=== PATIENT | female | born 1970 | race Caucasian/White ===

== ENCOUNTER 2016-09-15 06:30 | Day surgery (SDC) | payer OTHER ==
[2016-09-15] MEDS ORDERED: Sodium Chloride 0.9% 1,000 ML IV SCH (07:00)
[2016-09-15] MEDS ORDERED: fentaNYL 100 MCG/2 ML SDV ONE (07:36)
[2016-09-15] MEDS ORDERED: Propofol 200 MG/20 ML SDV ONE ×2 (07:36→08:05)
[2016-09-15] MEDS ORDERED: Midazolam 1 MG/ML 2 ML SDV ONE (07:37)
[2016-09-15 09:07] VITALS: BP 129/86
--- NOTE | 2016-09-18 08:02 | OR ---
DATE OF PROCEDURE: 09/15/2016 PROCEDURE: Colonoscopy. FINDINGS: 1. Ascending colon polyp, 5 mm, completely removed using cold biopsy forceps. 2. Sigmoid colon polyp, approximately 5-8 mm, completely removed using hot snare. COMPLICATIONS: None. CLINICAL DATA MANAGEMENT MANAGER: None. ANESTHESIA: MAC. PREOPERATIVE DIAGNOSIS: Family history of colorectal cancer. POSTOPERATIVE DIAGNOSIS: Family history of colorectal cancer. INDICATIONS: Risks, benefits, alternatives, and limitations, including, but not limited to infection, bleeding, and perforation were explained to the patient. We also discussed false- positives and false-negatives associated with colonoscopy. PROCEDURE IN DETAIL: The patient was placed in left lateral decubitus position. Digital rectal exam was performed without abnormality. The scope was introduced and advanced atraumatically to the ileocecal valve. The scope was brought back to the ascending, transverse, descending colon, and retroflexed. In the ascending colon, a small polyp was identified and completely removed using cold biopsy forceps. In the sigmoid colon, a large polyp was identified, first biopsied and then completely removed using a hot snare. No abnormalities on retroflexion. The patient tolerated the procedure well. Kenn Bhagat MD /[id number]
== END 2016-09-15 09:20 ==
LOC: JP.SDS 06:30
PROVIDERS: ATTEND Surgery
DX: D12.2 Benign neoplasm of ascending colon (principal); D12.5 Benign neoplasm of sigmoid colon; I10 Essential (primary) hypertension; E66.9 Obesity, unspecified; Z88.6 Allergy status to analgesic agent; Z88.8 Allergy status to other drugs, medicaments and biological substances
CPT/HCPCS: 45380; 45385; 88305; J2250; J2704; J3010; J7040

== ENCOUNTER 2019-09-29 06:34 | Day surgery (SDC) | payer OTHER ==
[2019-09-29] MEDS ORDERED: Sodium Chloride 0.9% 1,000 ML IV SCH (07:00)
[2019-09-29] MEDS ORDERED: fentaNYL 100 MCG/2 ML SDV ONE (07:18)
[2019-09-29] MEDS ORDERED: Midazolam 1 MG/ML 2 ML SDV ONE (07:18)
[2019-09-29] MEDS ORDERED: Propofol 200 MG/20 ML SDV ONE ×2 (07:18→07:57)
[2019-09-29 09:18] VITALS: BP 118/79; PULSE 88
--- NOTE | 2019-09-29 13:57 | OR ---
DATE OF PROCEDURE: 09/29/2019 SURGEON: Kenn Bhagat MD PROCEDURE: Colonoscopy. FINDINGS: 1. Descending colon polyp, approximately 5 mm, completely removed using hot snare wire device. 2. Transverse colon polyp, approximately 8 mm, completely removed using hot snare wire biopsy device. COMPLICATIONS: None. EXCHANGE CONSULTANT: None. PREOPERATIVE DIAGNOSIS: Family history of colorectal cancer. POSTOPERATIVE DIAGNOSIS: Family history of colorectal cancer. RISKS: Risks, benefits, alternatives, and limitations including, but not limited to infection, bleeding, and perforation were explained to the patient, who wished to proceed. PROCEDURE IN DETAIL: The patient was placed in left lateral decubitus position. Digital rectal exam was performed without any abnormality. Scope was introduced and advanced atraumatically to the ileocecal valve. A photo was taken. Scope was brought back through the ascending, transverse, descending colon, and retroflexed. The aforementioned polyps were identified and completely removed using snare. No abnormal bleeding was noted. No abnormalities on retroflexion. No diverticulosis, diverticulitis, or evidence of colitis. The patient tolerated the procedure well. Kenn Bhagat MD /[id number]
== END 2019-09-29 09:17 | disposition home or self-care (01) ==
LOC: JP.SDS 06:34
PROVIDERS: ATTEND Surgery
DX: Z12.11 Encounter for screening for malignant neoplasm of colon (principal); D12.3 Benign neoplasm of transverse colon; D12.4 Benign neoplasm of descending colon; I10 Essential (primary) hypertension; Z80.0 Family history of malignant neoplasm of digestive organs; Z88.5 Allergy status to narcotic agent
CPT/HCPCS: 45385; J2250; J2704; J3010; J7030; 88305

== ENCOUNTER 2020-08-10 17:59 | Emergency (ER) | payer OTHER ==
[2020-08-10 19:08] VITALS: BP 192/116; PULSE 109
[2020-08-10] MEDS ORDERED: LORazepam 1 MG Tab PO ONE (19:57)
--- NOTE | 2020-08-10 20:00 | EDM.PDOC ---
ED HPI GENERAL MEDICAL PROBLEM - General Chief Complaint: General Stated Complaint: FELL,HIT HEAD Time Seen by Provider: 08/10/20 19:47 Source of Information: Reports: Patient, RN Notes Reviewed History Limitations: Reports: No Limitations - History of Present Illness INITIAL COMMENTS - FREE TEXT/NARRATIVE: 49-year-old female presents emergency department today following a head injury yesterday she slipped and fell on the ice hit the back of her head, she does complain of a headache she is quite anxious about this does have a fairly large hematoma on the back of her scalp, no nausea vomiting no loss of consciousness no syncopal events Head Pain Score (Numeric/FACES): 1 - Related Data Allergies Allergy/AdvReac Type Severity Reaction Status Date / Time acetaminophen [From Percocet] Allergy Cannot Verified 08/10/20 19:03 Remember oxycodone [From Percocet] Allergy Cannot Verified 08/10/20 19:03 Remember Home Meds: Home Meds lisinopriL [Prinivil] 20 mg PO DAILY 09/12/16 [History] Cetirizine HCl [Zyrtec] 10 mg PO DAILY 08/10/20 [History] Omeprazole 20 mg PO DAILY 08/10/20 [History] Past Medical History HEENT History: Reports: Allergic Rhinitis, Impaired Vision, Sinusitis Cardiovascular History: Reports: Hypertension, Other (See Below) Other Cardiovascular History: palpatation Gastrointestinal History: Reports: Colon Polyp, GERD 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: Reports: Dysfunctional Uterine Bleeding, Polycystic Ovaries, Musculoskeletal History: Reports: Arthritis, Other (See Below) Other Musculoskeletal History: septic arthritis, chronic L knee pain Neurological History: Reports: Concussion Psychiatric History: Reports: Anxiety Endocrine/Metabolic History: Reports: Obesity/BMI 30+ Hematologic History: Reports: Anemia - Infectious Disease History Infectious Disease History: Reports: Chicken Pox - Past Surgical History HEENT Surgical History: Reports: Tonsillectomy Cardiovascular Surgical History: Reports: None GI Surgical History: Reports: Colonoscopy, Polypectomy Female Surgical History: Reports: Hysterectomy, Salpingo-Oophorectomy Endocrine Surgical History: Reports: None Musculoskeletal Surgical History: Reports: Knee Replacement Social & Family History - Tobacco Use Tobacco Use Status *Q: Current Every Day Tobacco User Years of Tobacco use: 30 Packs/Tins Daily: 1 - Caffeine Use Caffeine Use: Reports: Coffee - Alcohol Use Days Per Week of Alcohol Use: 2 Number of Drinks Per Day: 3 Total Drinks Per Week: 6 - Recreational Drug Use Recreational Drug Use: No ED ROS GENERAL - Review of Systems Review Of Systems: See Below Constitutional: Reports: No Symptoms Respiratory: Reports: No Symptoms Cardiovascular: Reports: No Symptoms GI/Abdominal: Reports: No Symptoms Neurological: Reports: Headache ED EXAM, GENERAL - Physical Exam Exam: See Below Free Text/Narrative:: Cranial nerves II test with pupillary light reflex 4 mm to 2 mm bilaterally, CN III test pupillary constriction, lid elevation and eye abduction bilaterally, CN IV downward movement of eyes bilaterally, CN V good jaw movement, CN lateral deviation of the eyes bilaterally to finger movement, CN VII symmetrical smile shows teeth without difficulty, CN VIII pass finger rub to ears bilaterally, CN IX adequate voice and tone, CN X adequate voice and tone no difficulty swallowing, CN XI can shrug shoulders without difficulty, CN XII can stick tongue out without difficulty, cranial nerves II to XII intact as tested, power is 5 out 5 in upper and lower extremities, can do finger to nose without difficulty, no dysdiadochokinesis, no difficulty with rapid alternating movements can do [id number] without difficulty, Romberg is negative, has adequate gait , can toe walk and heel walk no cerebellar dysfunction. Can perform heel-to-toe walk but is unsteady, no focal neurologic deficit, examination of the scalp there is a large fluctuant area consistent with a hematoma over the occipital region on the scalp Exam Limited By: No Limitations General Appearance: Alert, WD/WN, No Apparent Distress Respiratory/Chest: No Respiratory Distress Course - Vital Signs Last Recorded V/S: Last Vital Signs Temp 97.7 F 08/10/20 19:06 Pulse 109 H 08/10/20 19:07 Resp 16 08/10/20 19:06 BP 192/116 H 08/10/20 19:07 Pulse Ox 97 08/10/20 19:06 - Orders/Labs/Meds Meds: Medications Discontinued Medications Generic Name Dose Route Start Last Admin Trade Name Freq PRN Reason Stop Dose Admin Lorazepam 1 mg 08/10/20 19:57 Ativan PO 08/10/20 19:58 ONETIME ONE Departure - Departure Time of Disposition: 20:43 Disposition: Home, Self-Care 01 Condition: Fair Clinical Impression: Head injury Qualifiers: Encounter type: initial encounter Qualified Code(s): S09.90XA - Unspecified injury of head, initial encounter - Discharge Information Instructions: Head Injury, Adult Referrals: Yaniv Malin MD [Primary Care Provider] - Forms: ED Department Discharge Additional Instructions: Continue with your regular medications, please followup with your primary care provider in 3-5 days if not better, please call return to the emergency department with worsening of symptoms. Sepsis Event Note (ED) - Evaluation Sepsis Screening Result: No Definite Risk - Focused Exam Vital Signs: Vital Signs Temp Pulse Resp BP Pulse Ox 08/10/20 19:07 109 H 192/116 H 08/10/20 19:06 97.7 F 110 H 16 204/108 H 97 08/10/20 18:49 97.7 F 110 H 16 204/108 H 97 - Assessment/Plan Plan: Assessment Acuity = acute Site and laterality = head injury concern for risk of concussion Etiology = secondary to fall on ice Manifestations = headache Location of injury = Home Lab values = CT scan of the head shows no acute intracranial process Plan We did review CT scan results with her as well as concern for concussion related injury follow-up with her primary care in the next 3 to 5 days if not better This note was dictated using [employer] voice recognition software please call with any questions on syntax or grammar.
--- NOTE | 2020-08-10 20:28 | CRLCT ---
Indication: Head injury Technique: Volumetric multidetector CT images of the head were obtained without the administration of low osmolar intravenous contrast. Comparison: None available Findings: There is no intra-axial or extra-axial fluid collection. There is no mass effect or midline shift. The ventricles and sulci are normal in size and position for age. The brain parenchyma is grossly preserved in attenuation and valverde-white differentiation. The orbits and their contents are grossly within normal limits. The bony calvarium is grossly intact. There is demonstration of a occipital subgaleal soft tissue hematoma. The paranasal sinuses are clear. The mastoid air cells are well aerated. Impression: Demonstration of occipital subgaleal soft tissue hematoma without evidence of acute intracranial abnormality. Please note that all CT scans at this facility use dose modulation, iterative reconstruction, and/or weight-based dosing when appropriate to reduce radiation dose to as low as reasonably achievable. Dictated by Derick Brunson MD @ Aug 10 2020 8:23PM Signed by Dr. Derick Brunson @ Aug 10 2020 8:26PM
== END 2020-08-10 20:57 | disposition home or self-care (01) ==
LOC: JP.ED 17:59
DX: S09.90XA Unspecified injury of head, initial encounter (principal); I10 Essential (primary) hypertension; K21.9 Gastro-esophageal reflux disease without esophagitis; E66.9 Obesity, unspecified; Z68.31 Body mass index [BMI] 31.0-31.9, adult; Z88.5 Allergy status to narcotic agent; Z88.6 Allergy status to analgesic agent; Z79.899 Other long term (current) drug therapy; Z72.0 Tobacco use; Z79.82 Long term (current) use of aspirin; W01.10XA Fall on same level from slipping, tripping and stumbling with subsequent striking against unspecified object, initial encounter
CPT/HCPCS: 70450; 99283; 99283-25

== ENCOUNTER 2024-11-10 17:00 | Emergency (ER) | payer BC, OTHER ==
[2024-11-10] MEDS ORDERED: Sodium Chloride 0.9% 10 ML Syringe FLUSH PRN (17:08)
[2024-11-10 17:16] LABS: BASOPHILS ABSOLUTE AUTO 0.05 K/uL (0.00-0.10); BASOPHILS PERCENT AUTO 0.5 % (0.1-1.3); EOSINOPHILS ABSOLUTE AUTO 0.11 K/uL (0.00-0.40); EOSINOPHILS PERCENT AUTO 1.1 % (0.0-5.4); HEMATOCRIT 42.2 % (34.3-46.0); HEMOGLOBIN 14.8 g/dL (11.2-15.5); IMMATURE GRAN ABSOLUTE AUTO 0.03 K/uL (0.00-0.23); IMMATURE GRAN PERCENT AUTO 0.3 % (0.0-0.7); LYMPHOCYTES ABSOLUTE AUTO 2.07 K/uL (0.8-3.3); LYMPHOCYTES PERCENT AUTO 21.2 % (11.4-47.7); MEAN CORPUSCULAR HGB CONC 35.1 g/dL (31.6-35.5); MEAN CORPUSCULAR VOLUME 99.8 fL (81.4-99.0); MONOCYTES ABSOLUTE AUTO 0.77 K/uL (0.20-0.90); MONOCYTES PERCENT AUTO 7.9 % (3.3-12.6); NEUTROPHILS ABSOLUTE AUTO 6.74 K/uL (1.0-7.6); PLATELET COUNT,PLT 230 K/uL (130-375); RED BLOOD CELL COUNT 4.23 M/uL (3.77-5.24); WHITE BLOOD CELL COUNT,WBC 9.8 K/uL (3.2-11.0)
[2024-11-10 17:39] LABS: PTT,PARTIAL THROMBOPLSTIN TIME 28.1 sec (21.8-27.3)
[2024-11-10 17:43] LABS: ALANINE AMINOTRANSFERASE,ALT 31 U/L (12-78); ALKALINE PHOSPHATASE 74 U/L (46-116); ANION GAP 13.9 mmol/L (5.0-14.0); ASPARTATE AMNIOTRANSFERASE,AST 20 U/L (15-37); BILIRUBIN TOTAL 0.3 mg/dL (0.2-1.0); BLOOD UREA NITROGEN,BUN 11 mg/dL (7-18); CALCIUM 9.6 mg/dL (8.5-10.1); CARBON DIOXIDE,CO2 28 mmol/L (21-32); CHLORIDE,CL 93 mmol/L (100-108); CREATININE 0.9 mg/dL (0.6-1.0); EST CRCL DRUG DOSING (CG) 60.99 mL/min; ESTIMATED GFR 76 mL/min (>60); GLUCOSE RANDOM 112 mg/dL (74-106); POTASSIUM,K 3.9 mmol/L (3.6-5.2); PROTEIN TOTAL,TP 7.9 g/dL (6.4-8.2); SODIUM,NA 131 mmol/L (140-148); TROPONIN I HIGH SENSITIVITY 8.9 pg/mL (<=60.3)
[2024-11-10] MEDS: Aspirin 81 MG Tab.Chew PO ONE (19:34)
[2024-11-10 19:36] VITALS: BP 146/96; PULSE 90
[2024-11-10] MEDS: Sodium Chloride 0.9% 100 ML IV SCH (19:55)
[2024-11-10] MEDS: Iopamidol 755 Mg/ML 100 ML Bottle IV SCH (19:55)
== END 2024-11-10 19:43 | disposition home or self-care (01) ==
LOC: JP.ED 17:00
DX: R47.1 Dysarthria and anarthria (principal); I10 Essential (primary) hypertension; F17.200 Nicotine dependence, unspecified, uncomplicated; Z88.5 Allergy status to narcotic agent; Z79.899 Other long term (current) drug therapy; Z86.16 Personal history of COVID-19
CPT/HCPCS: 36415; 70450; 80053; 82947; 84484; 85025; 85610; 85730; 93005; 99285; A9270; 70496; 70496-26; 70498; 70498-26; Q9967

== ENCOUNTER 2025-02-26 15:18 | Emergency (ER) | payer BC ==
[2025-02-26 16:38] LABS: BASOPHILS ABSOLUTE AUTO 0.05 K/uL (0.00-0.10); BASOPHILS PERCENT AUTO 0.7 % (0.1-1.3); EOSINOPHILS ABSOLUTE AUTO 0.09 K/uL (0.00-0.40); EOSINOPHILS PERCENT AUTO 1.2 % (0.0-5.4); IMMATURE GRAN PERCENT AUTO 0.3 % (0.0-0.7); LYMPHOCYTES ABSOLUTE AUTO 1.83 K/uL (0.8-3.3); LYMPHOCYTES PERCENT AUTO 23.9 % (11.4-47.7); MONOCYTES ABSOLUTE AUTO 0.60 K/uL (0.20-0.90); MONOCYTES PERCENT AUTO 7.8 % (3.3-12.6); NEUTROPHILS ABSOLUTE AUTO 5.06 K/uL (1.0-7.6); NEUTROPHILS PERCENT AUTO 66.1 % (40.0-78.1); PLATELET COUNT,PLT 240 K/uL (130-375); RED BLOOD CELL COUNT 4.10 M/uL (3.77-5.24); WHITE BLOOD CELL COUNT,WBC 7.7 K/uL (3.2-11.0)
[2025-02-26 16:44] LABS: IMMATURE GRAN ABSOLUTE AUTO 0.02 K/uL (0.00-0.23)
[2025-02-26 17:00] LABS: BLOOD UREA NITROGEN,BUN 12 mg/dL (7-18); CARBON DIOXIDE,CO2 30 mmol/L (21-32); CHLORIDE,CL 95 mmol/L (100-108); CREATININE 0.7 mg/dL (0.6-1.0); ESTIMATED GFR 101 mL/min (>60); GLUCOSE RANDOM 100 mg/dL (74-106); POTASSIUM,K 3.7 mmol/L (3.6-5.2); SODIUM,NA 134 mmol/L (140-148); TROPONIN I HIGH SENSITIVITY 6.7 pg/mL (<=60.3)
[2025-02-26 17:51] VITALS: BP 171/94; PULSE 69
== END 2025-02-26 17:12 | disposition home or self-care (01) ==
LOC: JP.ED 15:18
DX: I16.0 Hypertensive urgency (principal); K21.9 Gastro-esophageal reflux disease without esophagitis; I10 Essential (primary) hypertension; Z88.5 Allergy status to narcotic agent; Z88.8 Allergy status to other drugs, medicaments and biological substances; Z79.899 Other long term (current) drug therapy; Z86.16 Personal history of COVID-19
CPT/HCPCS: 36415; 80048; 84484; 85025; 99283